=== PATIENT | male | born 1955 | race Caucasian/White ===

== ENCOUNTER 2020-03-19 18:58 | Emergency (ER) | payer MEDICARE, BC ==
[~2020-03-19] VITALS: Ht 170.2 cm; Wt 68.2 kg
[2020-03-19 19:33] LABS: BASOPHILS % (AUTO) 0.7 % (0-1); EOSINOPHILS # (AUTO) 0.2 X10'3 (0-0.9); EOSINOPHILS % (AUTO) 3.5 % (0-6); HEMATOCRIT 46.6 % (42.0-52.0); HEMOGLOBIN 15.7 g/dl (14.0-17.9); LYMPHOCYTES # (AUTO) 2.1 X10'3 (1.1-4.8); LYMPHOCYTES % (AUTO) 34.1 % (21-51); MEAN CORPUSCULAR HGB CONC 33.7 g/dL (33.0-36.5); MEAN CORPUSCULAR VOLUME 97.8 FL (78-98); MEAN PLATELET VOLUME 8.3 FL (7.4-10.4); MONOCYTES # (AUTO) 0.5 X10'3 (0-0.9); MONOCYTES % (AUTO) 8.4 % (2-12); NEUTROPHILS # (AUTO) 3.3 X10'3 (1.8-7.7); NEUTROPHILS % (AUTO) 53.3 % (42-75); PLATELET COUNT 237 X10'3 (140-440); RED BLOOD COUNT 4.77 X10'6 (4.70-6.10); RED CELL DISTRIBUTION WIDTH 13.3 % (11.5-14.5); WHITE BLOOD COUNT 6.2 X10'3 (4.5-11.0)
[2020-03-19] MEDS ORDERED: ATOR20TA66 PO (19:35)
[2020-03-19] MEDS ORDERED: CITA20TA28 PO (19:35)
--- NOTE | 2020-03-19 19:35 | NUR ---
Familial hx of cardiac and hyperlipidemia. Pt. states has also been extremely fatigued lately
[2020-03-19 19:47] LABS: ALANINE AMINOTRANSFERASE 46 U/L (12-78); ALBUMIN 3.7 G/DL (3.4-5.0); ALBUMIN/GLOBULIN RATIO 1.1 (1.1-1.5); ALKALINE PHOSPHATASE 71 IU/L (46-116); ANION GAP 7 (8-16); ASPARTATE AMINO TRANSFERASE 39 U/L (10-37); BILIRUBIN,TOTAL 0.4 MG/DL (0.1-1.0); BLOOD UREA NITROGEN 17 MG/DL (7-18); CALCIUM 9.5 MG/DL (8.5-10.1); CHLORIDE 107 MMOL/L (99-107); GLUCOSE 165 MG/DL (70-104); POTASSIUM 3.8 MMOL/L (3.5-5.1); SODIUM 142 MMOL/L (135-145); TOTAL CARBON DIOXIDE 28.2 MMOL/L (24-32); eGFR 75 ML/MIN
[2020-03-19 20:30] VITALS: BP 140/92
== END 2020-03-19 20:32 | disposition home or self-care (01) ==
LOC: ER 19:00
DX: R07.9 Chest pain, unspecified (principal); F41.9 Anxiety disorder, unspecified; Z88.8 Allergy status to other drugs, medicaments and biological substances; Z79.899 Other long term (current) drug therapy
CPT/HCPCS: 36415; 71045; 80053; 84484; 85025; 93005; 99285

== ENCOUNTER 2023-07-05 18:05 | Inpatient (IN) | payer MEDICARE, BC ==
[~2023-07-05] VITALS: Ht 170.2 cm; Wt 70.2 kg
[~2023-07-05 18:05] MED LIST: ATOR20TA66 PO; CITA20TA28 PO
[2023-07-05 19:47] LABS: BASOPHILS % (AUTO) 0.7 % (0-1); EOSINOPHILS # (AUTO) 0.1 X10'3 (0-0.9); EOSINOPHILS % (AUTO) 1.9 % (0-6); HEMATOCRIT 48.9 % (42.0-52.0); HEMOGLOBIN 16.5 g/dl (14.0-17.9); LYMPHOCYTES # (AUTO) 1.9 X10'3 (1.1-4.8); MEAN CORPUSCULAR HEMOGLOBIN 33.9 PG (27.0-31.0); MEAN CORPUSCULAR HGB CONC 33.7 g/dL (33.0-36.5); MEAN CORPUSCULAR VOLUME 100.4 FL (78-98); MEAN PLATELET VOLUME 8.1 FL (7.4-10.4); MONOCYTES # (AUTO) 0.7 X10'3 (0-0.9); MONOCYTES % (AUTO) 9.8 % (2-12); NEUTROPHILS % (AUTO) 59.6 % (42-75); PLATELET COUNT 254 X10'3 (140-440); RED BLOOD COUNT 4.87 X10'6 (4.70-6.10); RED CELL DISTRIBUTION WIDTH 13.4 % (11.5-14.5); WHITE BLOOD COUNT 6.7 X10'3 (4.5-11.0)
[2023-07-05 20:04] LABS: ALANINE AMINOTRANSFERASE 49 U/L (12-78); ALBUMIN 3.8 G/DL (3.4-5.0); ALKALINE PHOSPHATASE 77 IU/L (46-116); ANION GAP 9 (8-16); ASPARTATE AMINO TRANSFERASE 38 U/L (10-37); BILIRUBIN,TOTAL 0.4 MG/DL (0.1-1.0); BLOOD UREA NITROGEN 11 MG/DL (7-18); BUN/CREATININE RATIO 12.4 (10.0-20.0); CALCIUM 9.5 MG/DL (8.5-10.1); CHLORIDE 102 MMOL/L (99-107); CREATININE 0.89 MG/DL (0.60-1.10); GLUCOSE 101 MG/DL (70-104); POTASSIUM 4.3 MMOL/L (3.5-5.1); SODIUM 140 MMOL/L (135-145); TOTAL CARBON DIOXIDE 29.3 MMOL/L (24-32); TOTAL PROTEIN 7.5 G/DL (6.4-8.2); eCRCL 76 ML/MIN; eGFR 86 ML/MIN
[2023-07-05 20:18] LABS: PRO BRAIN NATRIURETIC PEPTIDE 83 PG/ML (0-125)
--- NOTE | 2023-07-05 22:02 | NUR ---
pt ambulated to restroom with even, steady gait.
[2023-07-05] MEDS ORDERED: ketorolac trometh inj. 60 MG/2 ML VIAL IM ONE (23:00)
[2023-07-05] MEDS ORDERED: acetaminophen 325mg tablet PO ONE (23:00)
[2023-07-05] MEDS ORDERED: aspirin 81mg tab.chew PO ONE (23:10)
[2023-07-06] VITALS (9 sets, daily range): BP systolic 114–147; BP diastolic 80–93; PULSE 51–92; RESP 14–18; TEMP 98.2; O2SAT 97–100
[2023-07-06] MEDS ORDERED: diphenhydrAMINE 25mg capsule PO PRN (03:05)
[2023-07-06] MEDS ORDERED: acetaminophen 325mg tablet PO PRN ×2 (03:05)
[2023-07-06] MEDS ORDERED: mag hydrox/Alum hydrox/simeth 30ml oral suspension PO PRN (03:05)
[2023-07-06] MEDS ORDERED: magnesium hydroxide 30ml (MOM) UD suspension PO PRN (03:05)
[2023-07-06] MEDS ORDERED: HYDROcodone/acetaminophen 10/325mg tab PO PRN (03:05)
[2023-07-06] MEDS ORDERED: morphine 2 MG/ML inj. syringe IV PRN ×2 (03:05)
[2023-07-06] MEDS ORDERED: diphenhydrAMINE 50 mg/ml inj IV PRN (03:05)
[2023-07-06] MEDS ORDERED: normal saline 1000ml 1,000 ML IV SCH (03:05)
[2023-07-06] MEDS ORDERED: ondansetron/PF 4mg/2ml inj IV PRN (03:05)
[2023-07-06] MEDS ORDERED: HYDROcodone/acetaminophen 5mg/325mg tablet PO PRN (03:05)
[2023-07-06] MEDS ORDERED: ondansetron 4mg rapidly disintigrating tab PO PRN (03:05)
[2023-07-06] MEDS ORDERED: bisacodyl 10mg suppository rectal RC PRN (03:05)
[2023-07-06] MEDS ORDERED: nitroGLYCERIN 0.4mg SUBLingual tab SL PRN (03:15)
[2023-07-06] MEDS ORDERED: regadenoson 0.4mg/5ml syringe IV PRN (03:15)
[2023-07-06] MEDS ORDERED: aminophylline 250mg/10ml inj. IV PRN (03:15)
[2023-07-06] MEDS ORDERED: lisinopril 10 MG tablet PO ONE (03:15)
[2023-07-06] MEDS ORDERED: metoprolol tartrate 1mg/ml inj IV PRN (03:15)
[2023-07-06 04:05] LABS: HEMOGLOBIN A1C 5.6 % (4.5-6.2)
[2023-07-06 04:14] LABS: LIPASE < 50 U/L (73-393); PHOSPHORUS 3.8 MG/DL (2.3-4.5); THYROID STIMULATING HORMONE 5.19 ulU/ml (0.34-4.50)
--- NOTE | 2023-07-06 06:47 | NUR ---
PER NUC MED PT MAY HAVE WATER P/T LEXISCAN BUT NO FOOD FOR 4HRS AND NO CAFFEINE FOR 12 HRS. RN NOTIFIED THEM THAT PT ATE APPLESAUCE AT 0400.
[2023-07-06] MEDS: pantoprazole 40mg Tablet.DR PO SCH ×2 (07:30→11:19)
[2023-07-06] MEDS: docusate sod 100mg capsule PO SCH ×2 (07:38→08:00)
[2023-07-06] MEDS: atorvastatin 20mg tablet PO SCH ×2 (07:40→11:19)
[2023-07-06] MEDS: metoprolol succinate 25mg (24-HOUR) SR. Tablet PO SCH ×2 (07:40→11:20)
[2023-07-06] MEDS: aspirin 81mg tab.chew PO SCH ×2 (07:41→11:18)
--- NOTE | 2023-07-06 07:41 | NUR ---
PER NUC MED RN TO HOLD METOPROLOL AND ALL AM MEDS EXCEPT ASPIRIN AND HEPARIN FOR LEXISCAN
[2023-07-06] MEDS ORDERED: heparin, porcine 5000 units/ml vial SQ SCH (08:00)
--- NOTE | 2023-07-06 08:48 | NUR ---
pt taken for michelle. RN WHEN ADMIN AM MEDS ONCE RETURNS.
--- NOTE | 2023-07-06 10:40 | NUR ---
[facility] PER IR ST DEPRESSION PRESENT IN ALL LEADS EXCEPT FOR LEAD [address] BOB IS AWARE. DR BOB AT BEDSIDE.
--- NOTE | 2023-07-06 11:17 | NUR ---
pt refused heparin injection despite being educated about risk of getting blood clot and verbalizing understanding.
--- NOTE | 2023-07-06 11:20 | NUR ---
RN DID NOT ADMIN METOPROLOL D/T PT HR 55. RN WILL PAGE MD TO NOTIFY HER.
[2023-07-06] MEDS ORDERED: VITA-268 PO (11:22)
[2023-07-06] MEDS ORDERED: ERGO400C PO (11:23)
[2023-07-06] MEDS ORDERED: OSC500T PO (11:25)
[2023-07-06] MEDS ORDERED: OMEG-43 PO (11:25)
--- NOTE | 2023-07-06 11:25 | NUR ---
MED REC COMPLETED.
[2023-07-06 11:40] LABS: APTT 28 SECONDS (22-32); D-DIMER 0.55 MG/L FEU (0-0.50); PROTHROMBIN TIME 10.3 SECONDS (9.0-12.0)
--- NOTE | 2023-07-06 11:40 | NUR ---
RN PAGED DR BOB TO NOTIFY HER THAT METOPROLOL HELD D/T PT HR 55 AND MED REC HAS BEEN COMPLETED.
[2023-07-06] MEDS ORDERED: PANT40TA54 PO (13:26)
[2023-07-06] MEDS ORDERED: ACET-1008 PO (13:26)
--- NOTE | 2023-07-06 15:00 | NUR ---
[employer]SPORT[employer] PARAM WILL DC IV AND DISCHARGE PT D/T THIS RN RECD MULTIPLE HIGH ACUITY PTS AND CAN NOT DO DISCHARGE.
[2023-07-06] MEDS ORDERED: temazepam 15mg capsule PO PRN (21:00)
== END 2023-07-06 17:13 | disposition home or self-care (01) | DRG 552 ==
LOC: ER 18:06 → ED HOLD 07-06 03:10
PROVIDERS: ADMIT Family Medicine; ATTEND Internal Medicine
PROC: 4A02XM4 Measurement of Cardiac Total Activity, External Approach (ICD-10-PCS; principal; 2023-07-06)
PROC: 3E073KZ Introduction of Other Diagnostic Substance into Coronary Artery, Percutaneous Approach (ICD-10-PCS; 2023-07-06)
DX: M43.12 Spondylolisthesis, cervical region (principal); I16.1 Hypertensive emergency; E78.5 Hyperlipidemia, unspecified; F32.A Depression, unspecified; F41.9 Anxiety disorder, unspecified; I10 Essential (primary) hypertension; Z87.891 Personal history of nicotine dependence; Z88.8 Allergy status to other drugs, medicaments and biological substances; Z79.899 Other long term (current) drug therapy
CPT/HCPCS: 36415; 71045; 72125; 78452; 80053; 83036; 83690; 83735; 83880; 84100; 84443; 84484; 85025; 85379; 85610; 85730; 93005; 93017; 99285; A9500; G0378; J1885; J2785; J7030

== ENCOUNTER 2025-01-07 23:28 | Emergency (ER) | payer MEDICARE, BC ==
[~2025-01-07] VITALS: Ht 170.2 cm; Wt 70.3 kg
[~2025-01-07 23:28] MED LIST changes: +ERGO400C PO; +OMEG-43 PO; +OSC500T PO; +PANT40TA54 PO; +VITA-268 PO
[2025-01-08 00:05] VITALS: BP 164/106; PULSE 72; RESP 20; O2SAT 96
[2025-01-08] MEDS ORDERED: SULF1TAB49 PO (01:16)
[2025-01-08] MEDS: sulfamethoxazole/trimethoprim DS (800/160mg) tablet PO ONE (01:26)
[2025-01-08] MEDS: TETanus/Pertussis (Acell)/Diphther VAC/PF (Tdap-Adult) 0.5ml syringe IMVAC ONE (01:27)
[2025-01-08] MEDS: ondansetron 4mg rapidly disintigrating tab PO ONE (01:27)
[2025-01-08] MEDS: bacitracin 15gm ointment TP ONE (01:31)
[2025-01-08 01:45] VITALS: TEMP 98.4
== END 2025-01-08 01:55 | disposition home or self-care (01) ==
LOC: ER 23:28
DX: L02.512 Cutaneous abscess of left hand (principal); M19.90 Unspecified osteoarthritis, unspecified site; Z88.8 Allergy status to other drugs, medicaments and biological substances; Z79.899 Other long term (current) drug therapy
CPT/HCPCS: 26010; 90715; 99283; A6402; G0008; Z7610; 90471; A6449